=== PATIENT | female | born 1965 | race Two or more races ===

== ENCOUNTER 2024-10-08 08:00 | Outpatient (RCR) | payer MEDICAID, SELFPAY ==
--- NOTE | 2024-09-15 11:12 | PTNOTE_ITS ---
PT OP Initial Eval Patient Information Outpatient Physical Therapy Treatment Date: 09/15/24 Visit Reasons: Presence of RT artificial knee Medical Diagnosis: Z96.651 Treatment Dx #1: Decreased ROM R knee Treatment Dx #2: R knee pain Start of Care: 09/15/24 Date of Onset: 04/24/24 Smoking Status Smoking Status: Never smoker Initial Assessment Subjective: Pt is 59 yr old ukrainian speaking female s/p R TKA in April presents to therapy with c/o not being able to extend the knee due to stiffness. And after standing with bent knee for about 20 minutes the L/s starts to hurt and she has to sit down. This limits work and HH chore tolerance. PMH: HTN Pt goal: to extend the knee Objective: R knee AROM: Extension: -22 deg Flexion: 95 deg SLR: 30 deg Strength: Quads: 4/5 HS: 4/5 Gait: antalgic Varus/valgus stress: significant valgus translation Assessment: Pt presentation consistent with post op R TKA with decreased ROM, strength ? and WB tolerance. Pt lacks 22 degrees of knee extension and flexion is also limited by ? myofascial limitations and pain.? Pt requires skilled therapy to improve ROM ? and strength and has fair rehab potential limited by chronicity since sx. Short Term and Intermediate Goals 1. Independent with HEP ? 2. Improved knee flexion ROM to at least 110 deg and full extension ? 3. Improved quad and hamstring strength to 4+/5 ? 4. Improved ambulatory tolerance to community distances with symmetrical ? gait pattern. Treatment Plan ? 1. Manual therapy ? 2. Therex ? 3. Modalities as indicated, moist heat, ice, estim Frequency and Duration: 2x-3x a week for 18 Rx visits Certification Dates: 09/15/24 to 12/16/24 Procedure Charges OP PT Eval Mod Complex 30 minutes: Yes
--- NOTE | 2024-09-17 08:31 | PT.ODAYNRPT ---
PT Outpatient Daily Note OP Daily Note Outpatient Physical Therapy Treatment Date: 09/17/24 Visit Reasons: Presence of RT artificial knee Subjective: Same as evaluation Objective: See F/S for therex MT: PPM into knee extension x5' with 10 sec holds with overpressure Assessment: Knee flexion contracture limits extension ROM with improved PROM after manual therapy a few degrees Plan: Continue per POC Length of Time (minutes) of Treatment: 30 Minutes Procedure Charges Therapeutic Exercise 30 minutes: Yes
--- NOTE | 2024-09-22 08:44 | PT.ODAYNRPT ---
PT Outpatient Daily Note OP Daily Note Outpatient Physical Therapy Treatment Date: 09/22/24 Visit Reasons: Presence of RT artificial knee Subjective: Pt reports knee is stiff and painful, scar is still sensitive. Objective: Please see flow sheet for ther ex list. Assessment: Performed passive knee extension, range limited due to pt guarding. Pt encouraged to perform LLPS into knee extension for HEP, pt agreed. Plan: Assess response to treatment. Length of Time (minutes) of Treatment: 30 Minutes Procedure Charges Therapeutic Exercise 30 minutes: Yes
--- NOTE | 2024-09-29 10:13 | PT.ODAYNRPT ---
PT Outpatient Daily Note OP Daily Note Outpatient Physical Therapy Treatment Date: 09/29/24 Visit Reasons: Presence of RT artificial knee Subjective: Doing HEP with 8 lb bag of beans on the knee to straighten it out Objective: See F/S for therex MT: PPM into knee extension x5' with 10 sec holds with overpressure Assessment: Knee flexion contracture limits extension ROM with improved PROM after manual therapy a few degrees Plan: Continue per POC Length of Time (minutes) of Treatment: 30 Minutes Procedure Charges Therapeutic Exercise 30 minutes: Yes
--- NOTE | 2024-10-01 08:17 | PT.ODAYNRPT ---
PT Outpatient Daily Note OP Daily Note Outpatient Physical Therapy Treatment Date: 10/01/24 Visit Reasons: Presence of RT artificial knee Subjective: Doing HEP with 8 lb bag of beans on the knee to straighten it out Objective: See F/S for therex MT: PPM into knee extension x5' with 10 sec holds with overpressure Assessment: Knee flexion contracture limits extension ROM with improved PROM after manual therapy a few degrees Plan: Continue per POC Length of Time (minutes) of Treatment: 30 Minutes Procedure Charges Therapeutic Exercise 30 minutes: Yes
--- NOTE | 2024-10-06 09:10 | PT.ODAYNRPT ---
PT Outpatient Daily Note OP Daily Note Outpatient Physical Therapy Treatment Date: 10/06/24 Visit Reasons: Presence of RT artificial knee Subjective: Doing HEP with 8 lb bag of beans on the knee to straighten it out Objective: See F/S for therex MT: PPM into knee extension x5' with 10 sec holds with overpressure Assessment: Knee flexion contracture limits extension ROM with improved PROM after manual therapy to about -5 deg Plan: Continue per POC Length of Time (minutes) of Treatment: 30 Minutes Procedure Charges Therapeutic Exercise 30 minutes: Yes
--- NOTE | 2024-10-08 08:50 | PT.ODAYNRPT ---
PT Outpatient Daily Note OP Daily Note Outpatient Physical Therapy Treatment Date: 10/08/24 Visit Reasons: Presence of RT artificial knee Subjective: Doing HEP with more knee extension ROM Objective: See F/S for therex MT: PPM into knee extension x5' with 10 sec holds with overpressure Assessment: Knee extension ROM is improving as well as heel toe gait. She has a knee flexion contracture at about -10 deg extension that limits extension ROM with improved PROM after manual therapy to about -5 deg extension. Plan: Continue per POC Length of Time (minutes) of Treatment: 30 Minutes Procedure Charges Therapeutic Exercise 30 minutes: Yes
== END 2024-10-12 23:59 | disposition home or self-care (01) ==
LOC: CPTX 08:00
PROVIDERS: PCP Orthopaedic Surgery; Referring Provider Orthopaedic Surgery; Visit Provider Orthopaedic Surgery
DX: M25.561 Pain in right knee (principal); Z96.651 Presence of right artificial knee joint; M25.661 Stiffness of right knee, not elsewhere classified; I10 Essential (primary) hypertension
CPT/HCPCS: 97110; 97162

== ENCOUNTER 2024-11-03 08:30 | Outpatient (RCR) | payer MEDICAID, SELFPAY ==
--- NOTE | 2024-10-14 08:40 | PT.ODAYNRPT ---
PT Outpatient Daily Note OP Daily Note Outpatient Physical Therapy Treatment Date: 10/14/24 Visit Reasons: Presence of rt artificial knee Subjective: Doing HEP with more knee extension ROM Objective: See F/S for therex MT: PPM into knee extension x5' with 10 sec holds with overpressure Assessment: Knee extension ROM is improving as well as heel toe gait. She has a knee flexion contracture at about -10 deg extension that limits extension ROM with improved PROM after manual therapy to about -5 deg extension. Plan: Continue per POC Length of Time (minutes) of Treatment: 30 Minutes Procedure Charges Therapeutic Exercise 30 minutes: Yes
--- NOTE | 2024-10-20 08:46 | PT.ODAYNRPT ---
PT Outpatient Daily Note OP Daily Note Outpatient Physical Therapy Treatment Date: 10/20/24 Visit Reasons: Presence of rt artificial knee Subjective: Doing HEP with more knee extension ROM Objective: See F/S for therex Assessment: Knee extension ROM is improving as well as heel toe gait. She has a knee flexion contracture at about -10 deg extension that limits extension ROM with improved PROM after manual therapy to about -5 deg extension. Plan: Continue per POC Length of Time (minutes) of Treatment: 30 Minutes Procedure Charges Therapeutic Exercise 30 minutes: Yes
--- NOTE | 2024-10-22 12:33 | PT.ODAYNRPT ---
PT Outpatient Daily Note OP Daily Note Outpatient Physical Therapy Treatment Date: 10/22/24 Visit Reasons: Presence of rt artificial knee Subjective: Doing HEP with more knee extension ROM Objective: See F/S for therex Assessment: Knee extension ROM is improving as well as heel toe gait. She has a knee flexion contracture at about -10 deg extension that limits extension ROM with improved PROM after manual therapy to about -5 deg extension. Plan: Continue per POC Length of Time (minutes) of Treatment: 30 Minutes Procedure Charges Therapeutic Exercise 30 minutes: Yes
--- NOTE | 2024-10-27 09:07 | PT.ODAYNRPT ---
PT Outpatient Daily Note OP Daily Note Outpatient Physical Therapy Treatment Date: 10/27/24 Visit Reasons: Presence of rt artificial knee Subjective: Pt reports she has been compliant with HEP, feels flexibility is progressing but slowly. Objective: Please see flow sheet for ther ex list. Assessment: Focus on improving ROM, minimal guarding during LLPS exercises. Plan: Continue with pOC. Length of Time (minutes) of Treatment: 30 Minutes Procedure Charges Therapeutic Exercise 30 minutes: Yes
--- NOTE | 2024-10-29 11:41 | PT.ODAYNRPT ---
PT Outpatient Daily Note OP Daily Note Outpatient Physical Therapy Treatment Date: 10/29/24 Visit Reasons: Presence of rt artificial knee Subjective: Doing HEP with more knee extension ROM Objective: See F/S for therex Assessment: Knee extension ROM is improving as well as heel toe gait. She has a knee flexion contracture at about -10 deg extension that limits extension ROM with improved PROM after manual therapy to about -3 deg extension. Plan: Reassess Length of Time (minutes) of Treatment: 30 Minutes Procedure Charges Therapeutic Exercise 30 minutes: Yes
--- NOTE | 2024-11-03 09:47 | PT.ODS1RPT ---
PT OP Progress/Discharge Note Date of Service: 11/03/24 Progress Note/DC Note Progress Note/Discharge Note: DC Note Patient Information Visit Reasons: Presence of rt artificial knee Service Continue Service or Discharge: Discharge Discharge Date: 11/03/24 Status Subjective: Doing HEP with more knee extension ROM Objective: See F/S for therex R knee ArOM: Flexion: 95 deg Extension: -5 deg Strength: 4/5 quads and HS Assessment: Pt has attended 12/12 therapy sessions with good progress with therapy goals. Knee extension ROM is improving as well as heel toe gait. She has a knee flexion contracture at about -10 deg extension that limits extension ROM with improved PROM after manual therapy to about -3 deg extension. Pt is independent with HEP. Plan: D/C with HEP Procedure Charges Therapeutic Exercise 30 minutes: Yes
== END 2024-11-11 23:59 | disposition home or self-care (01) ==
LOC: CPTX 08:30
PROVIDERS: PCP Orthopaedic Surgery; Referring Provider Orthopaedic Surgery; Visit Provider Orthopaedic Surgery
DX: M25.561 Pain in right knee (principal); M25.661 Stiffness of right knee, not elsewhere classified; Z96.651 Presence of right artificial knee joint; I10 Essential (primary) hypertension
CPT/HCPCS: 97110